=== PATIENT | male | born 1995 | race Caucasian/White ===

== ENCOUNTER 2018-10-01 12:06 | Emergency (ER) | payer OTHER, SELFPAY ==
[2018-10-01 12:09] VITALS: BP 136/78; PULSE 73; RESP 12; TEMP 36.5; O2SAT 100
--- NOTE | 2018-10-01 12:32 | ED.WOUNDLAC ---
HPI - Wound/Laceration <KATHY Mcduffie - Last Filed: 10/01/18 22:45> General Chief Complaint: Wound/Laceration Stated Complaint: Left hand laceration Time Seen by Provider: 10/01/18 12:20 Source: patient Mode of arrival: ambulatory Limitations: no limitations History of Present Illness HPI narrative: 23-year-old healthy male that is nonsmoker here for complaint of laceration to his left palm. He states he had a ground level fall last night using his left hand to brace his fall caused him to cut it on the pavement. He reports this happened approximately 12 hr prior to arrival. He reports that his immunizations and tetanus is up-to-date. He denies any other injuries. He reports having full range of motion of his left hand. No other concerns or complaints. Related Data Allergies Allergy/AdvReac Type Severity Reaction Status Date / Time No Known Drug Allergies Allergy Verified 10/01/18 12:12 Review of Systems <KATHY Mcduffie - Last Filed: 10/01/18 22:45> Constitutional Denies chills, Denies fever(s), Denies lethargy and Denies weakness Eyes Denies change in vision, Denies eye discharge, Denies irritation and Denies loss of vision ENT Ears, Nose, Mouth, and Throat: Denies change in voice, Denies neck pain and Denies sore throat Cardiovascular Denies chest pain, Denies irregular heart rhythm, Denies lightheadedness, Denies palpitations, Denies dyspnea, Denies dyspnea on exertion and Denies orthopnea Respiratory Denies cough, Denies dyspnea, Denies dyspnea on exertion and Denies wheezing Gastrointestinal Gastrointestinal: Denies abdominal pain, Denies change in bowel habits, Denies diarrhea, Denies nausea and Denies vomiting Genitourinary Denies hematuria, Denies flank pain, Denies urinary incontinence and Denies urinary urgency Musculoskeletal Denies neck pain Comments: Laceration left hand Integumentary/Breasts Denies pruritus, Denies erythema, Denies rash and Denies wounds Neurologic Denies confusion, Denies loss of vision and Denies weakness Psychiatric Denies anxiety, Denies confusion, Denies depression, Denies homicidal ideation and Denies suicidal ideation Endocrine Denies palpitations Hematologic/Lymphatic Denies easy bruising Allergic/Immunologic Denies wheezing PFSH <KATHY Mcduffie - Last Filed: 10/01/18 22:45> Social History Smoking Status: Never smoker Social History Smoking Status: Never smoker Exam <KATHY Mcduffie - Last Filed: 10/01/18 22:45> Initial Vital Signs Initial Vital Signs: Vital Signs Temperature 97.7 F 10/01/18 12:09 Pulse Rate 73 10/01/18 12:09 Respiratory Rate 12 10/01/18 12:09 Blood Pressure 136/78 10/01/18 12:09 Pulse Oximetry 100 10/01/18 12:09 Const General: cooperative and well developed Nutritional Appearance: well nourished Orientation: alert, awake, oriented x3 and not confused HENMT Mouth: oral mucosae normal and moist mucous membranes Eyes Conjunctivae: conjunctivae normal Sclera: sclerae normal Pupils: PERRL EOM: EOM intact bilaterally Resp Effort & Inspection: normal respiratory effort, able to speak in complete sentences, no respiratory distress and no use of accessory muscles Auscultation: clear to auscultation bilaterally, no rales, no rhonchi and no wheezes Cardio Rate: regular rate Rhythm: regular rhythm Heart Sounds: no click, no gallops, no murmurs and no rubs Pulses: normal peripheral pulses Skin General: no rashes or lesions noted, No jaundice and No petechiae Neuro General: alert, oriented x3, gait normal and no focal motor deficits Speech: speech normal Extrem Other: 1.5 cm laceration to the palm of the left hand. Distal sensation is intact. Full range of motion. Distal cap refill intact distal pulses are intact <Meera Castaneda MD - Last Filed: 10/05/18 18:10> Initial Vital Signs Initial Vital Signs: Vital Signs Temperature 97.7 F 10/01/18 12:09 Pulse Rate 73 10/01/18 12:09 Respiratory Rate 12 10/01/18 12:09 Blood Pressure 136/78 10/01/18 12:09 Pulse Oximetry 100 10/01/18 12:09 Procedures <KATHY Mcduffie - Last Filed: 10/01/18 22:45> Laceration Repair Laceration 1: Site: hand Side (If applicable): left Size (cm): 1.5 Description: irregular and clean Depth: simple, single layer Local Anesthetic: lidocaine 1% Amount of anesthesia used (mL): 2 Pre-repair: wound explored and irrigated extensively Skin layer closed with: nylon Size (cm): 5-0 Number of sutures: 3 Technique: simple, interrupted Course <KATHY Mcduffie - Last Filed: 10/01/18 22:45> Vital Signs - 8 hr 10/01/18 12:09 Temperature 97.7 F Pulse Rate 73 Respiratory Rate 12 Blood Pressure 136/78 Pulse Oximetry 100 <Meera Castaneda MD - Last Filed: 10/05/18 18:10> Vital Signs - 8 hr 10/01/18 12:09 Temperature 97.7 F Pulse Rate 73 Respiratory Rate 12 Blood Pressure 136/78 Pulse Oximetry 100 MDM - Wound/Laceration <KATHY Mcduffie - Last Filed: 10/01/18 22:45> MDM Narrative Medical decision making narrative: laceration to the left palm was closed with 3 5-0 nylon simple interrupted sutures. Patient tolerated well. No complications. Wound dressed with bacitracin and a dressing. Sutures removed in 7 days. [id number] Tylenol or Motrin as needed for any discomfort. For any worsening symptoms return to the emergency room. Follow up with primary care provider Discharge Plan Departure Patient Disposition: Home Clinical Impression: Laceration of hand, left Qualifiers: Encounter type: initial encounter Foreign body presence: without foreign body Qualified Code(s): S61.412A - Laceration without foreign body of left hand, initial encounter Discharge Date/Time: 10/01/18 13:25 Interventions: ED Discharge Assessment Last Done: 10/01/18 13:24 Instructions: DI for Laceration Repair Activity Restrictions/Additional Instructions: laceration to left hand was closed with 3 sutures. Sutures to be removed in 7 days. Dress wound daily with bacitracin and a dressing. Keep wound area clean and dry. Use [id number] Tylenol or Motrin as needed for any discomfort. For any worsening symptoms or signs of infection return to the emergency room. Follow up with primary care provider. Referrals: [facility] [Provider Group]
== END 2018-10-01 13:25 | disposition home or self-care (01) ==
PROVIDERS: Emergency Provider Nurse Practitioner Family
DX: S61.412A Laceration without foreign body of left hand, initial encounter (principal); W18.30XA Fall on same level, unspecified, initial encounter
CPT/HCPCS: 99282; 99283